=== PATIENT | female | born 1950 | race Caucasian/White ===

== ENCOUNTER 2018-02-06 09:48 | Emergency (ER) | payer OTHER ==
[2018-02-06 09:56] VITALS: BP 130/69
--- NOTE | 2018-02-06 10:56 | RADIOLOGY REPORT ---
EXAMINATION: XR FOOT, LEFT CLINICAL INFORMATION: Dorsal foot and ankle pain and ecchymosis status post injury. COMPARISON: None TECHNIQUE: AP, lateral, and oblique views of the left foot. FINDINGS: Bony alignment and mineralization are normal. There are small avulsion fragments seen arising from the dorsal aspects of the talus and the navicular bone. There is adjacent soft tissue swelling. Of note, the patient reports pain at this location (indicated by an arrow). No dislocation is seen. Boehler's angle is normal. There is no significant calcaneal spur. No significant left ankle joint effusion is seen. No foreign body is seen. IMPRESSION: There are tiny avulsion fragments is seen of the dorsal aspects of the talus and navicular bone, with adjacent soft tissue swelling. This corresponds with focal pain described at this location by the patient.
--- NOTE | 2018-02-06 10:59 | RADIOLOGY REPORT ---
EXAMINATION: XR ANKLE, LEFT CLINICAL INFORMATION: Pain and ecchymosis. COMPARISON: None TECHNIQUE: AP, lateral, and mortise views of the left ankle. FINDINGS: Alignment is normal. The talar dome is well-positioned within the intact ankle mortise. No evidence of malleolar fracture, subluxation or ankle joint effusion. Soft tissue swelling of the ankle is most pronounced at the anterolateral aspect of the ankle. A thin, 0.4 cm long cortical fragment projects dorsal to the talar head. Also, there is a similar sized small cortical fragment projecting dorsal to the navicular. These likely represent recent avulsion fractures. IMPRESSION: 1. Small avulsion fractures of the dorsal navicular and dorsal talar head (in region of dorsal ligament attachment at the talonavicular joint). 2. Posttraumatic soft tissue swelling of the anterolateral ankle. 3. No evidence of malleolar injury.
--- NOTE | 2018-02-06 11:45 | ED ANKLE/FOOT INJURY COMPLAINT ---
History of Present Illness General Chief Complaint: Foot or Ankle Injury Stated Complaint: LEFT FOOT SWELLING X1 DAY FROM FALL Source: patient Exam Limitations: no limitations Vital Signs & Intake/Output Vital Signs & Intake/Output Vital Signs Date Time Temp Pulse Resp B/P B/P Pulse O2 O2 Flow FiO2 Mean Ox Delivery Rate 02/06 0956 85 20 130/69 98 Allergies Uncoded Allergies: STRAWBERRIES (WELTS 02/06/18) Reconcile Medications Ibuprofen 800 MG TABLET 1 TAB PO TID PAIN Triage Note: PER PT PAIN TO L FOOT AND ANKLE SINCE YESTERDAY , HIT THE SIDE OF POOL, PT ANKLE SWOLLEN W ECCHYMOSIS FROM MEDAL ASPECT/MALLEOLUS ACROSS TOP Triage Nurses Notes Reviewed? yes Occurred: yesterday Duration: day(s): (1), constant, continues in ED Timing: single episode today Severity: moderate, severe Severity Numbers: 7 Pain/Injury Location: Left: Foot. Method of Injury: direct blow No Modifying Factors: none Modifying Factors: Worsens With: movement. Associated Symptoms: swelling LMP (ages 10-50): post menopausal, unknown : No HPI: 67-year-old female past medical history of hyperlipidemia presents for evaluation of pain and swelling in her left foot and ankle. Patient reports that yesterday she was in her pool when she hit her foot against the wall the pool and has had pain ever since. She is able to walk but it is very painful. She denies any numbness or tingling knee pain. She has not taken any medicine for pain. She has been applying ice. She denies any other injuries. (Jimmie Moise) Past History Travel History Traveled to [place] past 21 day No Medical History Any Pertinent Medical History? see below for history Neurological: NONE EENT: NONE Cardiovascular: CHOL Respiratory: NONE Gastrointestinal: NONE Hepatic: NONE Renal: NONE Musculoskeletal: NONE Psychiatric: NONE Endocrine: NONE Surgical History Surgical History: non-contributory Psychosocial History What is your primary language Hungarian Tobacco Use: Never used Family History Hx Contributory? No (Jimmie Moise) Review of Systems Review of Systems Constitutional: Reports: no symptoms. EENTM: Reports: no symptoms. Respiratory: Reports: no symptoms. Cardiovascular: Reports: no symptoms. GI: Reports: no symptoms. Genitourinary: Reports: no symptoms. Musculoskeletal: Reports: see HPI, joint pain, joint swelling. Skin: Reports: no symptoms. Neurological/Psychological: Reports: no symptoms. Hematologic/Endocrine: Reports: no symptoms. Immunologic/Allergic: Reports: no symptoms. All Other Systems: Reviewed and Negative (Jimmie Moise) Physical Exam Physical Exam General Appearance: well developed/nourished, no apparent distress, alert, awake Head: atraumatic, normal appearance Eyes: Bilateral: normal appearance, EOMI. Ears, Nose, Throat: hearing grossly normal Neck: normal inspection, supple, full range of motion Cardiovascular/Respiratory: no respiratory distress Leg/Knee/Thigh Left: normal range of motion, normal inspection Leg/Knee/Thigh Right: normal range of motion, normal inspection Ankle Left: soft tissue tenderness, swelling, the left ankle is diffusely swollen. There is bruising over the medial malleolus. The medial and lateral malleolus are tender to palpation.neurovascular supply is intact Ankle Right: normal inspection, normal range of motion Foot Left: normal inspection, normal range of motion, there is swelling over the dorsum of the left foot. There is diffuse tenderness to palpation of the dorsum of foot. No lacerations. Neurovascular supply is intact. Patient is able to bear weight but is very painful Foot Right: normal inspection, normal range of motion Neuro/Vascular: normal motor function, normal sensation Tendon: normal tendon function Psychiatric: awake, alert, oriented x 3 Skin: intact, normal color, warm/dry (Jimmie Moise) Progress Differential Diagnosis: septic arthritis, fracture, dislocation, sprain, contusion Plan of Care: Orders Procedure Date/time Status Durable Medical Equipment 02/06 1146 Active Patient is here with pain and swelling in her ankle and foot on the left side after hitting it on the pole. The ankle is diffusely swollen. Neurovascular is intact. X-rays of the foot and ankle show avulsion fractures of the talus and navicular bones. Patient was placed into a posterior splint. She is given crutches. Rest ice elevation compression. Tylenol or ibuProfen for pain. Follow-up with ortho/podiatry. Discussed return precautions patient agrees the plan Diagnostic Imaging: Viewed by Me: Radiology Read. Discussed w/RAD: Radiology Read. Radiology Impression: PATIENT: OLIVIER PATRICIA PRESENT AGE: 67 PATIENT ACCOUNT NO: [id number] : 50 LOCATION: [facility] ORDERING PHYSICIAN: Alek Najera MD SERVICE DATE: 02/06/18 EXAM TYPE: RAD - XRY-ANKLE 3 OR MORE VIEWS L EXAMINATION: XR ANKLE, LEFT CLINICAL INFORMATION: Pain and ecchymosis. COMPARISON: None TECHNIQUE: AP, lateral, and mortise views of the left ankle. FINDINGS: Alignment is normal. The talar dome is well- positioned within the intact ankle mortise. No evidence of malleolar fracture, subluxation or ankle joint effusion. Soft tissue swelling of the ankle is most pronounced at the anterolateral aspect of the ankle. A thin, 0.4 cm long cortical fragment projects dorsal to the talar head. Also, there is a similar sized small cortical fragment projecting dorsal to the navicular. These likely represent recent avulsion fractures. IMPRESSION: 1. Small avulsion fractures of the dorsal navicular and dorsal talar head (in region of dorsal ligament attachment at the talonavicular joint). 2. Posttraumatic soft tissue swelling of the anterolateral ankle. 3. No evidence of malleolar injury. DICTATED BY: Salvatore Herrera MD DATE/TIME DICTATED:02/06/181051 PHYSIOTHERAPY PRACTICE MANAGER:KATELYN DATE/TIME TRANSCRIBED:02/06/181051 CONFIDENTIAL, DO NOT COPY WITHOUT APPROPRIATE AUTHORIZATION. <Electronically signed in Other Vendor System> SIGNED BY: Salvatore Herrera MD 02/06/181058 (Jimmie Moise) Departure Departure Disposition: HOME OR SELF CARE Condition: Stable Clinical Impression Primary Impression: Foot fracture, left Qualifiers: Encounter type: initial encounter Fracture type: closed Qualified Code: S92.902A - Unspecified fracture of left foot, initial encounter for closed fracture Referrals: Owen Olvera MD (PCP/Family) Dung Chu DPM Additional Instructions: Rest, keep the foot elevated and apply ice 15-20 minutes every few hours. Ibuprofen 800 mg every 8 hours with food as needed for pain. Make a follow-up with an orthopedic doctor as soon as possible. Wear splint at all times. Walk with crutches. Monitor symptoms if you have worsening pain numbness tingling swelling or any other concerns return immediately. Please go over all results of today's visit with your primary care doctor. Contact your primary care doctor to let them know you were here in the emergency room. There may be nonspecific findings which may not be related to your visit today here in the emergency room but may require further evaluation and chronic monitoring by your primary care doctor. If you had a laceration today the chance of foreign body always remains. You should follow-up with your primary care doctor for recheck in 3-5 days for a wound check. If you had an x-ray done there is a chance that a fracture could have been missed on initial read and you should follow-up with your primary care doctor for repeat x-rays if symptoms persist. If your blood pressure was elevated here in the emergency room please have rechecked by her primary care doctor within the next 48 hours by your primary care doctor. If you were prescribed a narcotic here in the emergency room or any type of controlled substances you're not allowed to drive while taking this medication or operate any type of heavy machinery. Narcotics can make you feel lightheaded dizziness nausea and can cause constipation. You may need to potato picker a stool softener. Thank you for choosing [facility] emergency room. Please return to the emergency room immediately if you have any other concerns worsening of symptoms. Departure Forms: Customer Survey General Discharge Information Prescriptions: Current Visit Scripts Ibuprofen 1 TAB PO TID #30 TAB (Jimmie Moise) PA/[employer]BAG [employer] C[employer]TER Co-Sign Statement Statement: ED Attending supervision documentation- [X] I saw and evaluated the patient. I have also reviewed all the pertinent lab results and diagnostic results. I agree with the findings and the plan of care as documented in the PA's/HANDBAG [employer] C[employer]TER's documentation. [X] I have reviewed the ED Record and agree with the PA's/HANDBAG [employer] C[employer]TER's documentation. [] Additions or exceptions (if any) to the PAs/HANDBAG [employer]S C[employer]TER's note and plan are summarized below: [] (Dania QUICK,Alek Winchester) Procedures Splinting Location: left foot/ankle Manual Alignment Performed: No Hand-Made Type: orthoglass Splint: posterior walking Splint Applied By: splint applied by me Pre-Proc Neuro Vasc Exam: normal Post-Proc Neuro Vasc Exam: normal (Jimmie Moise)
[2018-02-06] MEDS ORDERED: IBUPROFEN800 M1 PO (14:10)
== END 2018-02-06 12:06 ==
LOC: ERH 09:48
DX: S92.122A Displaced fracture of body of left talus, initial encounter for closed fracture (principal); W16.5 Jumping or diving into swimming pool; Y92.9 Unspecified place or not applicable; Y93.9 Activity, unspecified
CPT/HCPCS: 73610-LT; 73630-LT